=== PATIENT | male | born 1945 | race Caucasian/White ===

== ENCOUNTER 2016-12-16 16:31 | Emergency (ER) | payer MEDICARE ==
--- NOTE | 2016-12-16 17:25 | Emergency Department Record ---
History of Present Illness - General Chief complaint: Weakness Stated complaint: NAUSEA,WEAKNESS,UNABLE TO STAND Time Seen by Provider: 12/16/16 17:08 Source: Patient, Family Mode of Arrival: Wheelchair Limitations: No limitations - History of Present Illness Initial comments: 71 yo male presents after not feeling well for possibly two weeks. He has had a cough, poor appetite, nausea, vomiting, intermittent abdominal pain. He lives alone. His sister states that she has not seen him for two weeks. She was told by his boss that he has not feel well since 12/04/16. The patient is somewhat difficult historian recalling all details. He states his jaw hurts when he eats. He states he has muscle cramps in his calves. No diarrhea. No dysuria MD Complaint: Generalized weakness Onset/Timin -: Days(s) Severity: Moderate Quality: Aching Consistency: Intermittent Improves with: None Worsens with: None Associated Symptoms: Denies other symptoms - [place] Coma Scale Eye Response: (4) Open spontaneously Motor Response: (6) Obeys commands Verbal Response: (5) Oriented [place] Total: 15 - Related Data Home Medications Medication Instructions Recorded Confirmed Last Taken Lisinopril/Hydrochlorothiazide 1 tab PO DAILY 12/16/16 12/16/16 Unknown [Lisinopril-Hctz 20-12.5 mg Tab] Allergies Allergy/AdvReac Type Severity Reaction Status Date / Time No Known Drug Allergies Allergy Verified 12/16/16 17:03 Travel Screening - Travel/Exposure Within Last 30 Days Have you traveled within the last 30 days?: No Review of Systems Constitutional: Reports: Chills, Fever, Malaise, Weakness Eyes: Denies: Eye discharge, Eye pain, Photophobia, Vision change ENT: Denies: Congestion, Throat pain Respiratory: Reports: Cough. Denies: Dyspnea, Hemoptysis, Stridor, Wheezes Cardiovascular: Denies: Chest pain, Palpitations, Syncope Endocrine: Denies: Fatigue Gastrointestinal: Reports: Abdominal pain, Nausea, Vomiting. Denies: Diarrhea Genitourinary: Denies: Dysuria, Frequency, Hematuria, Urgency Musculoskeletal: Reports: Myalgia. Denies: Arthralgia, Back pain, Neck pain Skin: Denies: Bruising, Change in color, Rash Neurological: Denies: Headache Psychiatric: Denies: Anxiety Hematological/Lymphatic: Denies: Blood Clots, Easy bleeding, Easy bruising, Swollen glands Past Medical History - SOCIAL HISTORY Smoking Status: Former smoker Alcohol Use: None Drug Use: None - RESPIRATORY Hx Respiratory Disorders: No - CARDIOVASCULAR Hx Cardio Disorders: Yes Hx Hypertension: Yes - NEURO Hx Neuro Disorders: No - GI Hx GI Disorders: No - Hx Genitourinary Disorders: No - ENDOCRINE Hx Endocrine Disorders: No - MUSCULOSKELETAL Hx Musculoskeletal Disorders: No - PSYCH Hx Psych Problems: No - HEMATOLOGY/ONCOLOGY Hx Hematology/Oncology Disorders: No Family Medical History Any Significant Family History?: No Physical Exam - General General Appearance: Alert, Oriented x3, Cooperative, No acute distress Limitations: No limitations - Head Head exam: Normal inspection - Eye Eye exam: Normal appearance, PERRL. negative: Conjunctival injection, Periorbital swelling - ENT ENT exam: Normal exam Ear exam: Normal external inspection Nasal Exam: Normal inspection Mouth exam: Normal external inspection Teeth exam: Normal inspection Throat exam: Normal inspection - Neck Neck exam: Normal inspection, Full ROM. negative: Tenderness - Respiratory Respiratory exam: Decreased breath sounds, Rhonchi. negative: Accessory muscle use, Prolonged expiratory, Stridor, Wheezes - Cardiovascular Cardiovascular Exam: Normal rhythm, Tachycardia Peripheral Pulses: 2+: Radial (R), Radial (L) - GI/Abdominal GI/Abdominal exam: Soft, Tenderness (mild diffuse tenderness) - Rectal Rectal exam: Deferred - exam: Deferred - Extremities Extremities exam: Normal inspection, Full ROM, Normal capillary refill. negative: Pedal edema, Tenderness - Back Back exam: Reports: Normal inspection, Full ROM. Denies: Muscle spasm, Rash noted, Tenderness - Neurological Neurological exam: Alert, Oriented X3 - Psychiatric Psychiatric exam: Normal affect, Normal mood - Skin Skin exam: Dry, Intact, Normal color, Warm Course Vital Signs 12/16/16 16:56 Temperature 102.7 F H Pulse Rate 120 H Respiratory 18 Rate Blood Pressure 144/77 Pulse Ox 98 - Reevaluation(s) Reevaluation #1: The labs were reviewed On the CBC the WBC was 8.5 with hgb of 11.1 The CMP demonstrated acute renal failure with a BUN of 65 and CR of 3.3 the Lipase was elevated at 341 12/16/16 17:58 Reevaluation #2: Lactic acid 0.9 Troponin <0.05 12/16/16 18:05 Procedures - EKG Initial Date: 12/16/16 Time: 17:31 EKG Detail: Sinus tach 119, Int Normal, [place] NL, ST NS inf-lateral changes, RSR' ,no old Medical Decision Making - Lab Data Result diagrams: 12/16/16 17:10 12/16/16 17:10 Disposition Clinical Impression: Dehydration, Pancreatitis Acute renal failure Qualifiers: Acute renal failure type: unspecified Qualified Code(s): N17.9 - Acute kidney failure, unspecified Forms: Patient Portal Access
[2016-12-16 17:27] LABS: BASO % 0.5 % (0-6); EOS % 0.1 % (0-6); GRAN % 76.7 % (47-80); HEMOGLOBIN 11.4 gm/dl (14.0-18.0); LYMPH % 11.4 % (16-45); MEAN CELL VOLUME 83.1 fl (81-97); MEAN CORPUSCULAR HGB CONC 33.5 g/dl (32-36); MEAN PLATELET VOLUME 10.3 fl (7.4-10.4); MONO % 11.3 % (0-9); PLATELET COUNT 355 K/uL (130-400); RED BLOOD COUNT 4.09 M/uL (4.40-5.70); RED CELL DISTRIBUTION WIDTH 13.5 % (11.5-14.5); WHITE BLOOD COUNT W/O DIFF 8.5 K/uL (4.2-12.2)
[2016-12-16 17:30] LABS: MEAN CORPUSCULAR HEMOGLOBIN 27.8 pg (27-33)
[2016-12-16 17:41] LABS: LACTIC ACID 0.9 mmol/L (0.7-2.1)
[2016-12-16 17:42] LABS: ALB/GLOB RATIO 1.2 (1.1-1.8); ALBUMIN 4.3 gm/dL (3.5-5.0); ANION GAP 13.3 (7-16); BILIRUBIN,TOTAL 0.35 mg/dL (0.2-1.3); CARBON DIOXIDE 15.7 mmol/L (22-30); CREATININE 3.3 mg/dL (0.66-1.25); TOTAL PROTEIN 7.9 gm/dL (6.3-8.2)
[2016-12-16 17:44] LABS: LIPASE 341 U/L (23-300)
[2016-12-16] MEDS: 0.9 % SODIUM CHLORIDE 1,000 ML BAG IV ONE ×2 (17:52→18:58)
[2016-12-16] MEDS: ACETAMINOPHEN 1,000 MG/100 ML BTL IVPB ONE (17:52)
[2016-12-16 17:56] LABS: TROPONIN I < 0.050 ng/mL (0.0-0.4)
[2016-12-16 19:00] LABS: URINE APPEARANCE SL CLOUDY; URINE BILIRUBIN NEGATIVE (NEGATIVE); URINE BLOOD SMALL (NEGATIVE); URINE COLOR YELLOW; URINE GLUCOSE (UA) NEGATIVE (NEGATIVE); URINE KETONE NEGATIVE (NEGATIVE); URINE LEUKOCYTE ESTERASE NEGATIVE (NEGATIVE); URINE NITRITE NEGATIVE (NEGATIVE); URINE UROBILINOGEN 0.2 E.U./dL (0.20 - 1.00)
[2016-12-16 19:08] LABS: URINE AMORPHOUS SEDIMENT 2+; URINE EPITHELIAL CELLS NONE SEEN (FEW); URINE RBC NONE SEEN (NONE SEEN); URINE WBC NONE SEEN (0-2/hpf)
[2016-12-16] MEDS ORDERED: METRONIDAZOLE IVPB 500 MG/100 ML BAG IVPB ONE (20:15)
--- NOTE | 2016-12-16 20:16 | Emergency Department Record ---
History of Present Illness - General Chief complaint: Weakness Stated complaint: NAUSEA,WEAKNESS,UNABLE TO STAND Time Seen by Provider: 12/16/16 17:08 Source: Patient, Family Mode of Arrival: Wheelchair Limitations: No limitations - History of Present Illness MD Complaint: Generalized weakness Onset/Timin -: Days(s) Severity: Moderate Quality: Aching Consistency: Intermittent Improves with: None Worsens with: None Associated Symptoms: Denies other symptoms - [place] Coma Scale Eye Response: (4) Open spontaneously Motor Response: (6) Obeys commands Verbal Response: (5) Oriented [place] Total: 15 - Related Data Home Medications Medication Instructions Recorded Confirmed Last Taken Lisinopril/Hydrochlorothiazide 1 tab PO DAILY 12/16/16 12/16/16 Unknown [Lisinopril-Hctz 20-12.5 mg Tab] Allergies Allergy/AdvReac Type Severity Reaction Status Date / Time No Known Drug Allergies Allergy Verified 12/16/16 17:03 Travel Screening - Travel/Exposure Within Last 30 Days Have you traveled within the last 30 days?: No Review of Systems Constitutional: Reports: Chills, Fever, Malaise, Weakness Eyes: Denies: Eye discharge, Eye pain, Photophobia, Vision change ENT: Denies: Congestion, Throat pain Respiratory: Reports: Cough. Denies: Dyspnea, Hemoptysis, Stridor, Wheezes Cardiovascular: Denies: Chest pain, Palpitations, Syncope Endocrine: Denies: Fatigue Gastrointestinal: Reports: Abdominal pain, Nausea, Vomiting. Denies: Diarrhea Genitourinary: Denies: Dysuria, Frequency, Hematuria, Urgency Musculoskeletal: Reports: Myalgia. Denies: Arthralgia, Back pain, Neck pain Skin: Denies: Bruising, Change in color, Rash Neurological: Denies: Headache Psychiatric: Denies: Anxiety Hematological/Lymphatic: Denies: Blood Clots, Easy bleeding, Easy bruising, Swollen glands Past Medical History - SOCIAL HISTORY Smoking Status: Former smoker Alcohol Use: None Drug Use: None - RESPIRATORY Hx Respiratory Disorders: No - CARDIOVASCULAR Hx Cardio Disorders: Yes Hx Hypertension: Yes - NEURO Hx Neuro Disorders: No - GI Hx GI Disorders: No - Hx Genitourinary Disorders: No - ENDOCRINE Hx Endocrine Disorders: No - MUSCULOSKELETAL Hx Musculoskeletal Disorders: No - PSYCH Hx Psych Problems: No - HEMATOLOGY/ONCOLOGY Hx Hematology/Oncology Disorders: No Family Medical History Any Significant Family History?: No Physical Exam - General Limitations: No limitations Course Vital Signs 12/16/16 12/16/16 12/16/16 16:56 18:09 18:33 Temperature 102.7 F H 99.7 F H Pulse Rate 120 H Pulse Rate [ 116 H 109 H Certified [employer] ] Respiratory 18 24 24 Rate Blood Pressure 144/77 Blood Pressure 154/85 114/75 [Right Arm] Pulse Ox 98 97 96 12/16/16 12/16/16 12/16/16 19:11 19:37 20:03 Temperature 98.7 F Pulse Rate Pulse Rate [ 100 H 99 H 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 Enlarged Prostate, correlate for possible bladder outlet obstruction. Labs reviewed, BUN 65, Creatinine 3.3. Patient and family report no previous history of kidney dysfunction, no previous labs are available in our system. Will initiate antibiotic treatment for diverticulitis, continue IVFs for mild hypotension (94/51), and initiate transfer for nephrology consultation. Patient and family agree with the plan of care as discussed, request transfer to [facility]. Reevaluation #2: 12/16/16 20:31 Case was discussed with Dr. Lai (Hospitalist), requests the patient undergo initial eval in [facility] ED due to borderline BP. Case was then discussed with Dr. Mahoney (ED), will accept transfer upon arrival. Patient and his daughter were updated on plan of care at this time. Medical Decision Making - Lab Data Result diagrams: 12/16/16 17:10 12/16/16 17:10 Lab Results 12/16/16 12/16/16 12/16/16 Range/Units 17:10 17:10 17:10 WBC 8.5 (4.2-12.2) K/uL RBC 4.09 L (4.40-5.70) M/uL Hgb 11.4 L (14.0-18.0) gm/dl Hct 34.0 L (42.0-52.0) % MCV 83.1 (81-97) fl MCH 27.8 (27-33) pg MCHC 33.5 (32-36) g/dl RDW 13.5 (11.5-14.5) % Plt Count 355 (130-400) K/uL MPV 10.3 (7.4-10.4) fl Gran % 76.7 (47-80) % Lymphocytes % 11.4 L (16-45) % Monocytes % 11.3 H (0-9) % Eosinophils % 0.1 (0-6) % Basophils % 0.5 (0-6) % Sodium 133 L (136-145) mmol/L Potassium 3.9 (3.5-5.1) mmol/L Chloride 104 (98-107) mmol/L Carbon Dioxide 15.7 L (22-30) mmol/L Anion Gap 13.3 (7-16) BUN 65 H (9-20) mg/dL Creatinine 3.3 H (0.66-1.25) mg/dL Estimated GFR 20 ml/min Random Glucose 95 (70-110) mg/dL Lactic Acid 0.9 (0.7-2.1) mmol/L Calcium 8.9 (8.5-10.1) mg/dL Total Bilirubin 0.35 (0.2-1.3) mg/dL AST 34 (17-59) U/L ALT 35 (21-72) U/L Alkaline Phosphatase 118 (38-126) U/L Troponin I < 0.050 (0.0-0.4) ng/mL Total Protein 7.9 (6.3-8.2) gm/dL Albumin 4.3 (3.5-5.0) gm/dL Globulin 3.6 (1.4-4.8) gm/dL Albumin/Globulin Ratio 1.2 (1.1-1.8) Lipase 341 H (23-300) U/L Urine Color Urine Appearance Urine pH (5.0-8.0) Ur Specific [place] (1.002-1.030) Urine Protein (NEGATIVE) Urine Glucose (UA) (NEGATIVE) Urine Ketones (NEGATIVE) Urine Blood (NEGATIVE) Urine Nitrite (NEGATIVE) Urine Bilirubin (NEGATIVE) Urine Urobilinogen (0.20 - 1.00) E.U./dL Ur Leukocyte Esterase (NEGATIVE) Urine RBC (NONE SEEN) Urine WBC (0-2/hpf) Ur Epithelial Cells (FEW) Amorphous [place] 12/16/16 Range/Units 18:56 WBC (4.2-12.2) K/uL RBC (4.40-5.70) M/uL Hgb (14.0-18.0) gm/dl Hct (42.0-52.0) % MCV (81-97) fl MCH (27-33) pg MCHC (32-36) g/dl RDW (11.5-14.5) % Plt Count (130-400) K/uL MPV (7.4-10.4) fl Gran % (47-80) % Lymphocytes % (16-45) % Monocytes % (0-9) % Eosinophils % (0-6) % Basophils % (0-6) % Sodium (136-145) mmol/L Potassium (3.5-5.1) mmol/L Chloride (98-107) mmol/L Carbon Dioxide (22-30) mmol/L Anion Gap (7-16) BUN (9-20) mg/dL Creatinine (0.66-1.25) mg/dL Estimated GFR ml/min Random Glucose (70-110) mg/dL Lactic Acid (0.7-2.1) mmol/L Calcium (8.5-10.1) mg/dL Total Bilirubin (0.2-1.3) mg/dL AST (17-59) U/L ALT (21-72) U/L Alkaline Phosphatase (38-126) U/L Troponin I (0.0-0.4) ng/mL Total Protein (6.3-8.2) gm/dL Albumin (3.5-5.0) gm/dL Globulin (1.4-4.8) gm/dL Albumin/Globulin Ratio (1.1-1.8) Lipase (23-300) U/L Urine Color Yellow Urine Appearance Sl cloudy Urine pH 6.0 (5.0-8.0) Ur Specific [place] 1.020 (1.002-1.030) Urine Protein 30 mg/dl H (NEGATIVE) Urine Glucose (UA) Negative (NEGATIVE) Urine Ketones Negative (NEGATIVE) Urine Blood Small H (NEGATIVE) Urine Nitrite Negative (NEGATIVE) Urine Bilirubin Negative (NEGATIVE) Urine Urobilinogen 0.2 (0.20 - 1.00) E.U./dL Ur Leukocyte Esterase Negative (NEGATIVE) Urine RBC None seen (NONE SEEN) Urine WBC None seen (0-2/hpf) Ur Epithelial Cells None seen (FEW) Amorphous Sediment 2+ Disposition Disposition: Transfer Clinical Impression: Dehydration Acute renal failure Qualifiers: Acute renal failure type: unspecified Qualified Code(s): N17.9 - Acute kidney failure, unspecified Pancreatitis Qualifiers: Chronicity: acute Pancreatitis type: unspecified pancreatitis type Acute pancreatitis complication: unspecified Qualified Code(s): K85.90 - Acute pancreatitis without necrosis or infection, unspecified Diverticulitis Qualifiers: Diverticulitis site: large intestine Diverticulitis bleeding: without bleeding Diverticulitis complication: without perforation or abscess Qualified Code(s): K57.32 - Diverticulitis of large intestine without perforation or abscess without bleeding Sepsis Qualifiers: Sepsis type: sepsis due to unspecified organism Qualified Code(s): A41.9 - Sepsis, unspecified organism Disposition: Acute Care Hospital Transfer Transfer To: [facility] Reason For Transfer: Sepsis, ARF, nephrology consultation Accepting Physician: Denzel Time Discussed w/Accepting Physician: 20:32 Condition: (2) Stable Forms: Patient Portal Access Time of Disposition: 20:32
[2016-12-16] MEDS: CIPROFLOXACIN LACTATE/D5W 400 MG/200 ML BAG IVPB ONE (20:39)
--- NOTE | 2016-12-17 14:03 | RADIOLOGY REPORT ---
EXAM: CHEST, TWO VIEWS HISTORY: COUGH, WEAKNESS. TECHNIQUE: AP sitting and lateral views of the chest were obtained. Comparison: None. FINDINGS: The heart size is normal. The lungs appear expanded with no acute infiltrate seen. No pleural effusion or pneumothorax evident. Slightly lordotic positioning on the frontal view. Spurring at the right acromioclavicular joint. IMPRESSION: THE CHEST APPEARS ESSENTIALLY NEGATIVE WITH NO DEFINITE ACUTE INFILTRATE SEEN. JOB NUMBER: [id number] MTDD
--- NOTE | 2016-12-17 14:54 | CT SCAN REPORT ---
EXAM: CT OF THE ABDOMEN AND PELVIS WITHOUT CONTRAST HISTORY: WEAKNESS, FEVER, VOMITING. TECHNIQUE: Axial CT scan of the abdomen and pelvis was performed with oral contrast, but without IV contrast at the referring physician's request. Comparison: None. FINDINGS: There is a small hiatal hernia. There is some motion artifact on some of the images. No definite calcified gallstones seen within the gallbladder. No intrarenal calculi identified on either side, however, there is mild hydronephrosis bilaterally right greater than left. There is mild dilatation of both ureters down into the pelvis where they become less distended more distally. The prostate appears quite enlarged measuring approximately 6 cm in transverse x 5.2 cm in AP diameter and appears to extend up into the floor of the bladder. Clinical correlation as to bladder outlet obstruction symptoms suggested. The bladder, however, is only moderately distended currently. Evaluation of the viscera is limited by the lack of IV contrast. Given this limitation, no definite hepatic, splenic, adrenal, pancreatic, or renal mass identified. Oral contrast given has passed throughout the small bowel to the rectum with no bowel obstruction evident. There is moderate diverticulosis in the left side of the colon, particularly the sigmoid, and there is also some diffuse thickening of the wall of the mid sigmoid colon. This may represent diverticulitis. The possibility of sigmoid malignancy is felt to be less likely but difficult to absolutely exclude. In addition to this wall thickening there is some density adjacent to the sigmoid colon that appears of fluid density and probably represents a small peridiverticular abscess about 1.7 cm in size located between the bladder and sigmoid colon. A bit more superiorly there is probably also a small fluid collection about 2 cm in size also suspicious for a small abscess and there are probably a few extraluminal air bubbles between the sigmoid colon and this region suggesting abscess. Approximately 2.8 x 1.2 cm soft tissue density a bit further laterally in the right side of the pelvis and this region is probably also inflammatory in nature. The patient does provide a history of prior appendix surgery and presumably the appendix is surgically absent. Some of this inflammatory change is adjacent to the tip of the cecum and if the appendix was still present, appendicitis could not be excluded as well. Correlation therefore to the specifics of the prior surgery is suggested to be certain the appendix is indeed surgically absent. The distal ileum passes through this apparent inflammatory region as well, but sigmoid diverticulitis would seem to be the most likely explanation for these findings rather than an enteritis. No free intraperitoneal air identified. No free fluid evident. There is advanced degenerative disk disease at the lumbosacral interspace. 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 Mild thoracolumbar curve convexed to the left. There is fairly extensive calcification of the abdominal aorta. 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 The maximum diameter of the abdominal aorta distally is only about 2.5 cm with no actual aneurysm identified. IMPRESSION: 1. NO URINARY TRACT CALCULI IDENTIFIED. THERE IS BILATERAL HYDRONEPHROSIS AND MILD DILATATION OF THE MID TO UPPER URETERS. THE PROSTATE IS CONSIDERABLY ENLARGED, NONSPECIFIC. CORRELATION WITH PHYSICAL EXAM AND SERUM PSA IS SUGGESTED AND CLINICAL CORRELATION TO SYMPTOMS OF BLADDER OUTLET OBSTRUCTION SUGGESTED. 2. DIVERTICULOSIS LEFT SIDE OF THE COLON. CHANGES IN THE MID SIGMOID COLON PROBABLY REPRESENTING ACUTE SIGMOID DIVERTICULITIS LIKELY WITH SOME SMALL PERIDIVERTICULAR ABSCESS.ES. THESE INFLAMMATORY FINDINGS ARE IN THE REGION OF THE DISTAL ILEUM AND THE APPENDIX BY HISTORY IS SURGICALLY ABSENT AND IS NOT IDENTIFIED. RECOMMEND CONFIRMING THE HISTORY OF APPENDECTOMY DESCRIBED ABOVE. 3. ADVANCED DEGENERATIVE CHANGES AT THE LUMBOSACRAL INTERSPACE PROBABLY WITH BILATERAL SPONDYLOLYSIS OF L5. 4. SMALL HIATAL HERNIA. 5. 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 NO ANEURYSM EVIDENT. JOB NUMBER: [id number] [facility]
== END 2016-12-16 21:02 | disposition short-term general hospital (02) ==
LOC: ER 16:31
DX: A41.9 Sepsis, unspecified organism (principal); R65.20 Severe sepsis without septic shock; N17.9 Acute kidney failure, unspecified; E86.0 Dehydration; K57.32 Diverticulitis of large intestine without perforation or abscess without bleeding; R53.1 Weakness; R11.2 Nausea with vomiting, unspecified; R05 Cough; I10 Essential (primary) hypertension; Z87.891 Personal history of nicotine dependence
CPT/HCPCS: 99285 ×2; 96365; 96375; 96361; 83605; 83690; 85025; 84484; 80053; 81001; 71020; 74176; 93005; 93010; J0744; J7030